=== PATIENT | male | born 1965 | race Hispanic/Latino ===

== ENCOUNTER 2017-12-18 11:17 | Outpatient (CLI) | payer BC | END 2017-12-18 11:18 | disposition home or self-care (01) | LOC: BICRAD 11:17 | PROVIDERS: ATTEND Family Medicine | DX: J40 Bronchitis, not specified as acute or chronic (principal) | CPT/HCPCS: 71046 ==

== ENCOUNTER 2018-01-02 07:29 | Outpatient (CLI) | payer BC ==
--- NOTE | 2018-01-02 10:24 | CT ---
CT THORAX WITHOUT IV CONTRAST: 01/02/2018 HISTORY: Cough. COMPARISON: Study from 03/17/[address] thoracic spine from 04/23/2014. FINDINGS: There are scattered lytic lesions seen throughout the osseous structures, including the thoracic as w ell as the visualized upper lumbar vertebral bodies, the sternum, and the left scapula, with a few crump btle lytic areas in a few thoracic ribs, which were also seen on the prior study, compatible with the patient's history of multiple myeloma. As noted on the CT scan of the thoracic spine, there are vertebroplasty changes involving the T10 and T11 vertebral bodies. There is methylmethacrylate seen in adjacent paravertebral veins with scatter ed linear areas of increased density scattered within the upper lobes bilaterally, likely related to migration of methylmethacrylate into the pulmonary veins. A few nonspecific pleural-based nodular densities are seen posteriorly, which could be related to dep endent areas of atelectasis. These findings were not seen on CT thoracic spine in 2013. No discrete parenchymal pulmonary nodular mass is seen, and there is no pleural effusion identified. The mediastinal structures have a normal appearance. There is no evidence of lymphadenopathy. A 4.7 cm exophytic superior pole left renal hypodense lesion is seen, demonstrating fluid attenuation , consistent with a cyst, which has enlarged when compared to the prior study in 2011, previously mary suring approximately 3 cm. The remainder of the visualized upper abdomen demonstrates a normal CT appearance. IMPRESSION: 1. Pleural-based nodular densities at the dependent portion of the lungs bilaterally, predominantly within the lower lobes, which are overall nonspecific and could be related to dependent areas of atel ectasis. However, if the patient's cough persists, follow-up imaging can be performed. 2. No evidence of lymphadenopathy. 3. Left renal cyst. 4. Scattered osseous lytic lesions, compatible with the patient's history of multiple myeloma. Vert ebroplasty changes are seen involving the T10 and T11 vertebral bodies. 5. Methylmethacrylate in paravertebral veins at the level of the vertebroplasty with linear areas of increased density within the upper lobes bilaterally, likely related to methylmethacrylate in the pu lmonary veins. POS: ROSALVA
== END 2018-01-02 07:30 | disposition home or self-care (01) ==
LOC: SCSCT 07:29
PROVIDERS: ATTEND Family Medicine
DX: R05 Cough (principal); R91.8 Other nonspecific abnormal finding of lung field; N28.1 Cyst of kidney, acquired; Z98.890 Other specified postprocedural states
CPT/HCPCS: 71260

== ENCOUNTER 2020-05-08 11:35 | Outpatient (CLI) | payer BC ==
--- NOTE | 2020-05-08 12:49 | RAD ---
EXAM: XR Cervical Spine 1 View DATE: 05/08/2020 11:46 AM INDICATION: Chronic spine pain COMPARISON: None. FINDING: Single AP view of the cervical spine demonstrates mild multilevel disc degenerative disease . There is mild retrolisthesis seen bilaterally at C7. 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 Soft tissues are normal appearing. IMPRESSION: Limited cervical spinal evaluation. Mild cervical spondylosis.
--- NOTE | 2020-05-08 12:54 | RAD ---
Exam: 2 views thoracic spine HISTORY: Chronic pain FINDINGS: 12 thoracic type vertebra. Previous vertebroplasty at T10 and T11 with evidence of cement. Mild loss of vertebral body height at T10. Mild to moderate loss of vertebral height T11. Mild degenerative change at the T9-T10, T10-T11 and T11-T12 disc spaces There is evidence of vertebral plasty cement involving multiple segments of the pulmonary vasculature . IMPRESSION: 1. Previous vertebroplasty. There are degenerative changes of the distal thoracic spine.
--- NOTE | 2020-05-08 13:00 | RAD ---
Exam: 2 views lumbar spine HISTORY: Chronic pain. FINDINGS: 5 lumbar type vertebra. Lumbar spine vertebral body height is maintained. No fracture. Moderate loss of disc space at L4-L5. Straightening of normal lumbar lordosis. No spondylolisthesis or spondylolysis. There are lucencies i nvolving the L2, L3, L4 and L5 vertebral bodies. There appear to be bony changes along the sacrum, incompletely evaluated. Visualized iliac wings appe ar to be intact. However, there appear to be scattered lucencies involving the left and right iliac wing as well as th e left and right hemipelvis including bilateral obturator rings. Findings are compatible with a CT noted from 03/17/2012 IMPRESSION: 1. Extensive abnormal lucencies involving the bony pelvis and sacrum. 2. Additional lucencies involving the lumbar spine at L2, L3, L4 and L5.
== END 2020-05-08 11:36 | disposition home or self-care (01) ==
LOC: BICRAD 11:35
PROVIDERS: ATTEND Family Medicine
DX: M54.6 Pain in thoracic spine (principal); G89.29 Other chronic pain; M47.814 Spondylosis without myelopathy or radiculopathy, thoracic region; M47.812 Spondylosis without myelopathy or radiculopathy, cervical region; Z98.890 Other specified postprocedural states; Z00.00 Encounter for general adult medical examination without abnormal findings; R20.0 Anesthesia of skin
CPT/HCPCS: 72020; 72070; 72100; 80053; 80061; 81001; 84443; 85025

== ENCOUNTER 2020-05-25 09:45 | Outpatient (CLI) | payer BC ==
--- NOTE | 2020-05-25 10:33 | RAD ---
EXAM: 2 views of the right femur HISTORY: Multiple myeloma COMPARISON: None FINDINGS: There is no evidence of acute fracture or dislocation. No lytic lesions are seen in the vis ualized bones. No soft tissue swelling is seen. No degenerative changes are seen in the hip. IMPRESSION: No evidence of acute osseous abnormality.
--- NOTE | 2020-05-25 10:34 | RAD ---
XR Femur Lt 2 View STANDARD History: Multiple myeloma in remission Comparison: None. Findings: Mild degenerative disease of the left hip with acetabular as well as femoral head/neck ring osteophytes. Subcortical cyst formation of the left acetabulum. Femoral cortex and medullary cavity are intact. No focal lytic lesions. Small synovial herniation pit of the left femoral neck. Impression: No evidence for active myeloma.
--- NOTE | 2020-05-25 10:35 | RAD ---
EXAM: 2 views of the left tibia/fibula HISTORY: Multiple myeloma in remission COMPARISON: Left femur radiograph 05/25/2020 FINDINGS: There is no evidence of acute fracture or dislocation. No lytic lesions are seen in the vis ualized bones. No soft tissue swelling is seen. No degenerative changes are seen in the knee or ankle. IMPRESSION: No evidence of acute osseous abnormality.
--- NOTE | 2020-05-25 11:44 | CT ---
Exam: CT cervical spine without contrast HISTORY: Trauma. Pain. COMPARISON: None FINDINGS: No craniocervical dissociation. Appropriate alignment of the lateral masses of C1 and C2. Intact odon toid process Appropriate alignment of the facets. Soft tissue neck structures: No mass, lymphadenopathy or hematoma. No prevertebral soft tissue swelli ng. Upper mediastinum and lung apices: Unremarkable Central spinal canal: Neural foramina and central spinal canal are patent. Evaluation is limited by t echnique Vertebral bodies: Cervical spine vertebral body height is maintained. No fracture. There are lucent f oci involving the C2 vertebral body, C5, C6, C7, T1 and T2 vertebral bodies. Additional lucent foci are noted facets C5 and C7. Some of these lucent foci have soft tissue attenuation. Occasional lucen t focus has fat attenuation. Given the patient's history, the possibility of recurrent multiple myeloma cannot be excluded. IMPRESSION: 1. No fracture. 2. Multifocal lucent foci, worrisome for multiple myeloma recurrence. Consider oncology consultation. Transcribed Date/Time: 05/25/2020 12:30 PM
--- NOTE | 2020-05-25 12:01 | CT ---
Exam: Thoracic spine CT without contrast HISTORY: Multiple myeloma. Worsening pain. Evaluate for recurrence. Evaluate for spread. COMPARISON: 04/23/2014, 12/30/2013. FINDINGS: Redemonstration of vertebroplasty change at T10 and T11, similar to both previous examinations. There is a small amount of methylmethacrylate involving the paraspinal vasculature. There is stable vertebral body height at T10 and T11. There are no new pathologic fractures. There is stable degenera tive change throughout the thoracic spine. Stable lucent foci of T2 as well as other thoracic and upper lumbar vertebra, compatible with patient's history of multiple myeloma. The overall degree of c hange in the thoracic vertebra is similar. Visualized mediastinum, solid organs, paraspinal muscles and lung parenchyma do not demonstrate any a cute abnormality. Redemonstration of a cyst in the upper pole of the left kidney, incompletely evaluated. IMPRESSION: 1. Stable vertebroplasty at T10 and T11. No significant progression of loss of vertebral body height 2. Diffuse mottled appearance of the thoracic vertebra with discrete lytic lesions is redemonstrated. The overall degree of change to the vertebral bodies is similar. 3. No acute fractures are appreciated. Transcribed Date/Time: 05/25/2020 12:44 PM
--- NOTE | 2020-05-25 12:06 | RAD ---
RIGHT TIBIA AND FIBULA 2 VIEWS: HISTORY: Pain, multiple myeloma in remission. FINDINGS: No evidence for acute fracture or dislocation. No evidence for circumscribed bone lytic defect that would suggest multiple myeloma. IMPRESSION: Unremarkable right tibia and fibula. No evidence for lytic bone lesions to suggest multiple myeloma. POS: RRE
--- NOTE | 2020-05-25 12:16 | CT ---
Exam: Lumbar spine CT without contrast COMPARISON: 03/14/2012. HISTORY: Multiple myeloma. Back pain. Evaluate for progression of disease. FINDINGS: Visualized paraspinal muscles, paraspinal soft tissues do not demonstrate any lymphadenopathy or mass es. Visualized solid organs and alimentary canal grossly unremarkable There are five lumbar-type vertebra. Lumbar spine vertebral body heights are maintained. No fracture. Extensive lucent foci throughout the lumbar spine compatible with involvement of secondary to known multiple myeloma. There is significant replacement of the normal-appearing right aspect of the S1 and S2 vertebral bodies as well as the left aspect of S1. The right aspect of S1 has soft tissue attenuation. The left aspect has predominantly fatty attenuation. There is partial obscuration of the right S1 nerve root secondary to tumor in the right S1 level. The degree of obscuration is slightly less than the previous exam. There are no pathologic fractures involving the visualized bony pelvis and sacrum. Involvement of both iliac wings is noted. IMPRESSION: 1. Multifocal osseous metastases without pathologic fracture. 2. Redemonstration of extensive involvement of the sacrum. There is partial obscuration of the right S1 nerve root secondary to abnormal soft tissue attenuation. Transcribed Date/Time: 05/25/2020 12:52 PM
== END 2020-05-25 09:46 | disposition home or self-care (01) ==
LOC: TBSIIMAG 09:45
PROVIDERS: ATTEND Orthopaedic Surgery
DX: M54.2 Cervicalgia (principal); M54.6 Pain in thoracic spine; M54.5 Low back pain; C79.51 Secondary malignant neoplasm of bone; M79.89 Other specified soft tissue disorders; G54.8 Other nerve root and plexus disorders; Z98.890 Other specified postprocedural states
CPT/HCPCS: 36415; 72125; 72128; 72131; 80053; 82248; 83615; 83883; 84100; 84165; 84550